=== PATIENT | female | born 1940 | race Caucasian/White ===

== ENCOUNTER 2016-10-14 11:06 | Observation (INO) ==
[2016-10-14 11:11] VITALS: BMI 33.9
[2016-10-14 11:37] LABS: BASOPHILS # (AUTO) 0.1 K/uL (0-0.2); BASOPHILS % (AUTO) 0.8 % (0.0-3.0); EOSINOPHILS # (AUTO) 0.3 K/ul (0.0-0.7); EOSINOPHILS % (AUTO) 3.2 % (0.0-7.0); HEMATOCRIT 44.5 % (37.0-47.0); HEMOGLOBIN 14.9 g/dl (12.0-16.0); IMMATURE GRANULOCYTE % (AUTO) 0.4 % (0.0-5.0); LYMPHOCYTES # (AUTO) 2.8 K/uL (0.60-3.4); LYMPHOCYTES % (AUTO) 33.4 (10.0-50.0); MEAN CORPUSCULAR HEMOGLOBIN 28.9 pg (27.0-31.0); MEAN CORPUSCULAR HGB CONC 33.5 (31.8-35.4); MEAN CORPUSCULAR VOLUME 86.2 fl (81.0-99.0); MONOCYTES # (AUTO) 0.8 K/uL (0.4-2.0); MONOCYTES % (AUTO) 9.8 (0-10); NEUTROPHILS # (AUTO) 4.4 K/ul (2.0-6.9); NEUTROPHILS % (AUTO) 52.4; PLATELET COUNT 389 10^3/uL (140-440); RED BLOOD COUNT 5.16 10^6/ul (4.20-5.40); WHITE BLOOD COUNT 8.41 K/ul (4.6-10.2)
--- NOTE | 2016-10-14 11:46 | DI ---
EXAM: Two views of the chest. History: Cough. Findings: Heart size is normal. No focal consolidation. No appreciable pleural fluid and no pneum othorax. Atherosclerotic vascular calcifications. No acute osseous abnormalities. Postsurgical ch anges of the right humerus. Impression: No acute cardiopulmonary process.
--- NOTE | 2016-10-14 11:52 | CT ---
EXAM: CT of the head without contrast History: Dizziness. Technique: Multiplanar CT images through the head were obtained without the administration of IV co ntrast Findings: The visualized paranasal sinuses and mastoid air cells are clear in general. No acute ca lvarial abnormalities. Intracranially the ventricular and cisternal spaces are normal in size, shape and configuration for a patient of this age. No dominant mass or midline shift. No hydrocephalous. No acute intracrania l hemorrhage or abnormal extraaxial fluid collections. Impression: No acute intracranial process.
[2016-10-14 12:16] LABS: ALBUMIN 3.2 g/dL (3.4-5.0); ALBUMIN/GLOBULIN RATIO 0.78; ANION GAP 12.3; BILIRUBIN,TOTAL 0.57 mg/dL (0.00-1.20); BUN/CREATININE RATIO 13.63; CALCIUM 9.3 mg/dL (8.2-10.2); CREATININE 0.88 mg/dL (0.60-1.30); POTASSIUM 4.3 mmol/L (3.5-5.10); TOTAL PROTEIN 7.3 g/dL (5.8-8.1); TROPONIN I 0.015 ng/ml (0.0000-0.4000)
--- NOTE | 2016-10-14 12:59 | ED.PDOC ---
General ED Provider: Dr. VISHAL BOTELLO Chief Complaint: Dizziness Stated Complaint: DIZZINESS Time Seen by Physician: 11:10 (NO IJURY) Mode of Arrival: Walk-In Information Source: Patient Exam Limitations: No limitations Primary Care Provider: GENTRY EDWARDS Nursing and Triage Documentation Reviewed and Agree: Yes Neurological Complaint Exam - Dizziness Complaint/Exam Last Known Well: 1 DAY Onset: Gradual Duration: 11:12 AM Symptoms Are: Still present Timing: Intermittent Episodes Lasting: Hours Initial Severity: Mild Current Severity: Mild Character: Reports: Dizzy Aggravating: Reports: Position change Alleviating: Reports: Rest, Lying down, Closing eyes Associated Signs and Symptoms: Denies: Nausea, Vomiting, Diaphoresis, Tinnitus, Chest pain, Short of air, Palpitations, Unsteady gait, GI blood loss, Visual changes, Decreased oral intake, Change in medication, Change in diet, OTC meds, Loss of balance Cardiac Risk Factors: Reports: Hypertension Review of Systems - Review Of Systems Constitutional: Reports: Malaise, Weakness Eyes: Reports: No symptoms Ears, Nose, Mouth, Throat: Reports: No symptoms Respiratory: Reports: No symptoms Cardiac: Reports: No symptoms GI: Reports: No symptoms : Reports: No symptoms Musculoskeletal: Reports: No symptoms Skin: Reports: No symptoms Neurological: Reports: Other (DIZZINESS) Endocrine: Reports: No symptoms Hematologic/Lymphatic: Reports: No symptoms All Other Systems: Reviewed and Negative Past Medical History - Past Medical History Previously Healthy: No Endocrine: Reports: Hypothyroid Cardiovascular: Reports: Hypertension Respiratory: Reports: None Hematological: Reports: None Gastrointestinal: Reports: None Genitourinary: Reports: None Neuro/Psych: Reports: None Musculoskeletal: Reports: None Cancer: Reports: None Last Menstrual Period: NONE - Surgical History General Surgical History: Reports: None - Family History Family History: Reports: None - Social History Smoking Status: Never smoker Hx Substance Use: No Alcohol Screening: None Physical Exam - Physical Exam Appearance: Well-appearing, No pain distress, Well-nourished Eyes: ZACK, EOMI, Conjunctiva clear ENT: Ears normal, Nose normal, Oropharynx normal Respiratory: Airway patent, Breath sounds clear, Breath sounds equal, Respirations nonlabored Cardiovascular: RRR, Pulses normal, No rub, No murmur GI/: Soft, Nontender, No masses, Bowel sounds normal, No Organomegaly Musculoskeletal: Normal strength, ROM intact, No edema, No calf tenderness Skin: Warm, Dry, Normal color Neurological: Sensation intact, Motor intact, Reflexes intact, Cranial nerves intact, Alert, Oriented Psychiatric: Affect appropriate, Mood appropriate Interpretation - Radiology Interpretation Radiology Interpretation By: Radiologist Radiology Results: No acute changes - Fifth Hand Rate: Ted Rhythm: Sinus Ectopy: None - EKG Interpretation Rate: Ted Rhythm: Sinus Ectopy: None [place]: NL ST Segment: Normal Physician Notification - Case Discussed Physician Notified: PMD Time of Notification: 12:59 (ADMITT CAROTID DUPPLER MRI BRAIN) Critical Care Note - Critical Care Note Total Time (mins): 0 Course - Course Hematology/Chemistry: 10/14/16 11:30 10/14/16 11:30 Orders, Labs, Meds: Lab Review 10/14/16 11:30 WBC 8.41 RBC 5.16 Hgb 14.9 Hct 44.5 MCV 86.2 MCH 28.9 MCHC 33.5 RDW Coeff of Shayla 14.7 Plt Count 389 Immature Gran % (Auto) 0.4 Neut % (Auto) 52.4 Lymph % (Auto) 33.4 [place] % (Auto) 9.8 Eos % (Auto) 3.2 Baso % (Auto) 0.8 Immature Gran # (Auto) 0.0 Neut # 4.4 Lymph # 2.8 [place]idge # 0.8 Eos # 0.3 Baso # 0.1 D-Dimer (Manual) 840.62 Sodium 140 Potassium 4.3 Chloride 107 Carbon Dioxide 25 Anion Gap 12.3 BUN 12 Creatinine 0.88 Estimated GFR (MDRD) 62.00 BUN/Creatinine Ratio 13.63 Glucose 92 Calcium 9.3 Total Bilirubin 0.57 AST 15 ALT 10 L Alkaline Phosphatase 68 Total Creatine Kinase 32 Troponin I 0.0150 Total Protein 7.3 Albumin 3.2 L Globulin 4.1 Albumin/Globulin Ratio 0.78 TSH 2.530 Free T4 0.75 Orders Category Date Time Status EKG-(ED ONLY) Stat CARDIO 10/14/16 11:17 Completed CBC W/ AUTO DIFF Stat LAB 10/14/16 11:30 Completed COMPREHENSIVE METABOLIC PANEL Stat LAB 10/14/16 11:30 Completed CREATINE KINASE Stat LAB 10/14/16 11:30 Completed D-DIMER Stat LAB 10/14/16 11:30 Completed FREE T4 (FREE THYROXINE) Stat LAB 10/14/16 11:30 Completed THYROID STIMULATING HORMONE Stat LAB 10/14/16 11:30 Completed TROPONIN I Stat LAB 10/14/16 11:30 Completed CHEST, 2 VIEWS PA & LAT Stat RADS 10/14/16 11:[address] HEAD W/O CONTRAST Stat RADS 10/14/16 11:18 Completed Vital Signs: Temp Pulse Resp BP Pulse Ox 10/14/16 11:06 96.6 F L 55 L 18 143/71 H 93 L Departure - Departure Time of Disposition: 12:58 Disposition: HOME SELF-CARE Discharge Problem: Dizziness Instructions: Vertigo (ED), Dizziness (ED), Lightheadedness (ED) Condition: Good Pt referred to PMD for follow-up: Yes (ADMITT) Allergies/Adverse Reactions: Allergies No Known Allergies Allergy (Unverified 10/14/16 11:12) Home Medications: Ambulatory Orders Bisoprolol Fumarate 5 mg PO BID 10/14/16 Diltiazem HCl [Diltiazem 24Hr Cd] 240 mg PO DAILY 10/14/16 Levothyroxine Sodium [Synthroid] 125 mcg PO DAILY 10/14/16 Nitroglycerin [Nitrostat] 0.4 mg SL Q5MIN X 3 DOSES PRN 10/14/16 Disposition Discussed With: Patient, Family
[2016-10-14] MEDS ORDERED: NITROSTAT SL PRN (13:03)
--- NOTE | 2016-10-14 14:27 | MRI ---
EXAM: MRI brain without and with IV contrast. DATE: 14 October 2016. HISTORY: Dizziness. TECHNIQUE: Sagittal T1W pre and postcontrast, axial T2W, axial FLAIR, axial T1W pre and postcontras t, axial DWI, coronal T1W postcontrast, and coronal T2W GRE sequences of the brain [place] [facility] [place] [facility] Tammy magnet. CONTRAST: Omniscan - 19 ml IV. COMPARISON: CT head 14 October 2016. FINDINGS: The lateral ventricles are upper normal size. Sylvian fissures and many frontal / pariet al lobe sulci are prominent due to involutional change. No midline shift, mass effect or loculated extra-axial fluid collection is apparent. No acute infarct, hemorrhage or enhancing neoplasm is riley ntified. No abnormal contrast enhancement is identified in the brain, meninges or dura. Minimal, c onfluent rim of T2W/FLAIR hyperintensity is observed in the white matter abutting each lateral ventr icle. Small number of 2-10 mm, T2W/FLAIR bright, non-enhancing foci are scattered in the lopez rad iata, centrum semiovale and subcortical white matter bilaterally. the vogel - white matter different iation is normal. No migration or diverticulation abnormality is identified. The amygdala, hippoca mpus, and parahippocampal gyri are symmetric and normal bilaterally. The 7th/8th cranial nerve comp lexes, cerebellopontine angles, brainstem, and visible cervical spinal cord are normal. There is no cerebellar tonsillar ectopia. The pituitary gland is small in size, with CSF filling most of the p ituitary fossa. Corpus callosum is normal in size and configuration. Left vertebral artery is domina nt. Flow voids are present in the major intracranial arteries and in the dural venous sinuses. No a neurysm, AVM or dural venous sinus thrombosis is apparent. Appearance in the lens of each eye is co nsistent with prior cataract surgery. No other orbit abnormality is identified. A few inferolatera l right mastoid air cells have a reticular pattern T2W bright, T1W intermediate signal without abnor mal enhancement. Left of the mastoid air cells are unremarkable. There is no acute sinusitis. Stephon ateral parotid gland fatty infiltration is demonstrated. No neck mass or lymphadenopathy is detecte d. No calvarial neoplasm or acute fracture is evident. IMPRESSIONS: 1. No acute infarct, hemorrhage, mass or hydrocephalus. 2. Minor/mild supratentorial small vessel disease. 3. Mild cerebral atrophy (primarily frontoparietal). 4. 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 5. Minor right mastoid air cell disease. Note: Report faxed to ER physician at 1421 hrs, 14 October 2016.
--- NOTE | 2016-10-14 14:32 | US ---
EXAM: Ultrasound bilateral carotid duplex HISTORY: Dizziness and speech difficulty COMPARISON: Carotid Doppler 03/03/2015 TECHNIQUE: Sonographic, wave spectral analysis and color Doppler evaluation of the carotids were pe rformed. FINDINGS: The right carotid is patent in appearance with mild atherosclerotic plaque visualized. The right ICA peak systolic velocity measures 90 cm/sec which is normal. The ICA / CCA peak systolic velocity ratio is 1.7 and ICA end-diastolic velocity is 20 cm/sec. The left carotid is patent in appearance with mild atherosclerotic plaque visualized. The left ICA peak systolic velocity measures 90 cm/sec which is normal. The left ICA / CCA peak systolic velocity ratio is 1.5 and ICA end-diastolic velocity is 20 cm/sec. Wave spectral analysis is within normal limits bilaterally. Vertebral arteries demonstrate antegrade flow bilaterally. IMPRESSION: Bilateral mild atherosclerotic disease with no sonographic or Doppler evidence of hemodynamically si gnificant stenosis.
[2016-10-14] MEDS: VALIUM PO SCH ×2 (16:18→20:10)
[2016-10-14] MEDS: SODIUM CHLORIDE 1,000 ML IV SCH (16:18)
[2016-10-14] MEDS: ANTIVERT PO SCH ×2 (16:18→20:11)
[2016-10-14 19:27] LABS: TROPONIN I 0.011 ng/ml (0.0000-0.4000)
[2016-10-14] MEDS: ZEBETA PO SCH (20:11)
[2016-10-15 03:28] LABS: BASOPHILS # (AUTO) 0.1 K/uL (0-0.2); BASOPHILS % (AUTO) 0.7 % (0.0-3.0); EOSINOPHILS # (AUTO) 0.3 K/ul (0.0-0.7); HEMATOCRIT 38.2 % (37.0-47.0); HEMOGLOBIN 12.6 g/dl (12.0-16.0); IMMATURE GRANULOCYTE % (AUTO) 0.5 % (0.0-5.0); LYMPHOCYTES # (AUTO) 2.7 K/uL (0.60-3.4); MEAN CORPUSCULAR HEMOGLOBIN 28.6 pg (27.0-31.0); MEAN CORPUSCULAR VOLUME 86.6 fl (81.0-99.0); MONOCYTES # (AUTO) 1.1 K/uL (0.4-2.0); MONOCYTES % (AUTO) 12.8 (0-10); NEUTROPHILS # (AUTO) 4.5 K/ul (2.0-6.9); PLATELET COUNT 326 10^3/uL (140-440); RED BLOOD COUNT 4.41 10^6/ul (4.20-5.40); WHITE BLOOD COUNT 8.59 K/ul (4.6-10.2)
[2016-10-15 03:57] LABS: ALBUMIN 2.4 g/dL (3.4-5.0); ALBUMIN/GLOBULIN RATIO 0.77; ANION GAP 9.7; BILIRUBIN,TOTAL 0.29 mg/dL (0.00-1.20); BUN/CREATININE RATIO 18.3; CALCIUM 7.6 mg/dL (8.2-10.2); CREATININE 0.71 mg/dL (0.60-1.30); POTASSIUM 3.7 mmol/L (3.5-5.10); TOTAL PROTEIN 5.5 g/dL (5.8-8.1)
[2016-10-15 04:03] LABS: CREATINE KINASE 20 U/L
[2016-10-15] MEDS: SODIUM CHLORIDE 1,000 ML IV SCH (04:47)
[2016-10-15 05:44] VITALS: BP 161/78; TEMP 98
[2016-10-15] MEDS ORDERED: SODIUM CHLORIDE 250 ML IV ONE (06:00)
[2016-10-15] MEDS ORDERED: SYNTHROID PO SCH ×2 (06:30)
[2016-10-15] MEDS: VALIUM PO SCH (06:44)
[2016-10-15] MEDS ORDERED: NON-FORMULARY MEDICATION (Diltiazem Hcl [Diltiazem 24hr Cd] 240 MG) PO SCH ×22 (09:00)
[2016-10-15] MEDS ORDERED: NON-FORMULARY MEDICATION (Levothyroxine Sodium [Synthroid] 125 MCG) PO SCH ×22 (09:00)
[2016-10-15] MEDS ORDERED: CARDIZEM CD PO SCH (09:00)
[2016-10-15] MEDS: ANTIVERT PO SCH (09:46)
[2016-10-15] MEDS: ZEBETA PO SCH (09:46)
--- NOTE | 2016-10-17 11:02 | ECHO2D ---
Date of Exam: 10/15/16 Ordering Physician: GENTRY EDWARDS Reason for Echo: DIZZINESS M-Mode Normal Adult Results LV Dimensions Normal Adult Results AoV Opening excursions >1.6 >1.6 LVEDD-base- 3.5-5.8 5.1 Ao root dimensions 2.0-3.7 3.8 LVESD-base- 3.1-4.6 L. Atrium dimensions 1.9-3.8 4.7 Post. Wall thickness 0.8-1.1 1.2 IV septum (thickness) 0.7-1.2 1.3 Post. Wall excursion 0.72-1.3 NORMAL Septal motion NORMAL Systolic motion R. Ventricular cavity 1.5-2.0 NORMAL LVEF 60% 54% Paradoxical septal wall motion NORMAL 2-D : ENLARGED LEFT ATRIAL CAVITY--NORMAL LEFT VENTRICULAR CONTRACTILITY-- NORMAL VALVES--NO EFFUSION, NO THROMBUS M-MODE: MV: NORMAL AV: NORMAL TV: NORMAL PV: CHAMBER SIZE: ENLARGED LEFT ATRIAL CAVITY WALL MOTION: NORMAL LEFT VENTRICULAR CONTRACTILITY PERICARDIUM: NORMAL INTERPRETATION: 1. LEFT VENTRICULAR HYPERTROPHY WITH ENLARGED LEFT ATRIAL CAVITY 2. NORMAL LEFT VENTRICULAR CONTRACTILITY 3. NORMAL VALVES MTDD
--- NOTE | 2016-10-18 15:17 | HP ---
DATE OF SERVICE: 10/14/16 REASON FOR HOSPITALIZATION: Dizziness. HISTORY OF PRESENT ILLNESS: The patient is a 76 year old white female seen in the emergency room with dizziness, the patient walked in. The patient had dizziness for past one day, mostly the dizziness was with the head movement with nausea. The patient had no nausea and then the patient lays down and she feels better or she closes her eyes. Change in the position or movement of the head makes her nauseated and dizzy. REVIEW OF SYSTEMS: CONSTITUTIONAL: No night sweats. Weakness and fatigue. No fever or chills. The patient is up and about. HEENT: Eyes: No visual changes. No eye pain. No eye discharge. ENT: No runny nose. No epistaxis. No sinus pain. No sore throat. No odynophagia. No ear pain. No congestion. RESPIRATORY: No cough, no congestion. No hemoptysis. No shortness of breath. CARDIOVASCULAR: No angina symptoms. No CHF symptoms. No atypical chest pain for CAD. No palpitations. No shortness of breath. No PND. No orthopnea. GASTROINTESTINAL: No abdominal pain. Nausea with dizziness. No vomiting. No diarrhea or constipation. No hematemesis. No hematochezia. GENITOURINARY: No urgency. No frequency. No dysuria. No hematuria. No obstructive symptoms. No discharge. No pain. No significant abnormal bleeding. MUSCULOSKELETAL: No musculoskeletal pain. No joint swelling. No arthritis. NEUROLOGICAL: No headache. No neck pain. No syncope. No seizures. Dizziness with head movement, feels like she is going to pass out, no localized lack of movement of any extremity or speech problems or swallowing problem. PSYCHIATRIC: Not anxious. No depression. No suicidal thoughts. No homicidal thoughts. SKIN: No rash. No lesions. No wounds. ENDOCRINE: No unexplained weight loss. No weight gain. HEMATOLOGIC/LYMPHATIC: No anemia. No purpura. No petechiae. No prolonged or excessive bleeding. No palpable lymph nodes. PERSONAL/FAMILY/SOCIAL HISTORY: The patient is and lives with the . Nonsmoker and no alcohol abuse. 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 Dr. Justo Hwang Dyslipidemia Hypertension Carotid stenosis 40-60%, 5-6 years ago Metabolic syndrome Vitamin D deficiency Severe DJD, Generalized Heart cath, 01/[address] Carballo, normal Hypothyroidism MEDICATIONS: Zebeta 5mg twice a day Levothyroxine 150mg PO daily Diltiazem 240mg PO daily Aspirin 81mg PO daily ALLERGIES: Latex- adverse reaction. PHYSICAL EXAMINATION: GENERAL: The patient is oriented to time, place and person. VITAL SIGNS: Temperature 97.6, pulse 61, respiratory rate 22, blood pressure 140/70 and pulse ox 93%. HEENT: Head normocephalic, atraumatic. Eyes: Extraocular muscles are intact. Pupils are equal, round and reactive to light and accommodation. Ears: No lesions. Nose appeared normal. Throat: No exudate or erythema. Face: Symmetrical. NECK: Supple. No JVP, no carotid bruit. No lymphadenopathy or thyromegaly. LUNGS: Decreased breath sounds but clear to auscultation. Percussion note normal. Chest symmetrical. HEART: S1, S2, no S3. No murmurs. No cyanosis or clubbing. No ascites. Pulses: Dorsalis pedis and posterior tibial pulses +1 to +2 both sides. ABDOMEN: Soft. Nontender. Bowel sounds active. No CVA tenderness. No mass felt. EXTREMITIES: No edema. Full range of motion of all extremities, equal. NEUROLOGIC: No focal deficit. Cranial nerves II through XII are grossly intact. No headache, no double vision or headache. Mental status normal. Moving all her extremities. Deep tendon flex and motor sensory normal. SKIN: Not dry. Intact. Turgor - normal. LYMPHATIC: No palpable lymph nodes/no lymphedema. MUSCULOSKELETAL: Normal joints with no swelling. Muscle tone is normal. LABS: Hgb 14.9, hct 44, WBC 8,400 normal differential, creatinine 0.8, BUN 12, potassium 4.3, T4 TSH normal, GFR 62cc per minute. ASSESSMENT: 1. Dizziness, light headedness likely from vestibular dysfunction with nausea 2. Coronary artery disease with stent, 2008 3. Hypothyroidism 4. Hypertension 5. Dyslipidemia 6. GIST tumor, tumor of the stomach 7. Obesity PLAN: 1. The patient already has chest x-ray and CT scan of the head, both negative 2. Will do carotid scan 3. Will do echocardiogram 4. Telemetry to monitor the rhythm 5. Valium/Antivert combination Q 6 hourly CONDITION: Stable. TIME SPENT: More than 70 minutes. MTDD
--- NOTE | 2016-10-20 15:13 | PN ---
DATE OF SERVICE: 10/15/16 DISCHARGE NOTE SUBJECTIVE: The patient's dizziness subsided with Antivert and Valium combination. She was up and about, she looked happy and was able to tolerate the food with no vomiting. Explained about vestibular dysfunction. REVIEW OF SYSTEMS: CONSTITUTIONAL: No night sweats. No fatigue, malaise, lethargy. No fever or chills. HEENT: Eyes: No visual changes. No eye pain. No eye discharge. ENT: No runny nose. No epistaxis. No sinus pain. No sore throat. No odynophagia. No congestion. RESPIRATORY: No cough, no congestion. No hemoptysis. CARDIOVASCULAR: No angina symptoms. No CHF symptoms. No atypical chest pain for CAD. No palpitations. No shortness of breath. GASTROINTESTINAL: No abdominal pain. No nausea or vomiting. No diarrhea or constipation. No hematemesis. No hematochezia. GENITOURINARY: No urgency. No frequency. No dysuria. No hematuria. No obstructive symptoms. No discharge. No pain. No significant abnormal bleeding. MUSCULOSKELETAL: No musculoskeletal pain; no joint swelling. NEUROLOGICAL: No headache. No neck pain. No syncope. No seizures. No dizziness. PSYCHIATRIC: Not anxious. No depression. No suicidal thoughts. No homicidal thoughts. SKIN: No rash. No lesions. No wounds. ENDOCRINE: No unexplained weight loss. No weight gain. HEMATOLOGIC/LYMPHATIC: No anemia. No purpura. No petechiae. No prolonged or excessive bleeding. No palpable lymph nodes. PHYSICAL EXAMINATION: GENERAL: The patient is oriented to time, place and person. VITAL SIGNS: Temperature 98, pulse 53, blood pressure 161/78, respiratory rate 18 and pulse ox 93%. HEENT: Head normocephalic, atraumatic. Eyes: Extraocular muscles are intact. Pupils are equal, round and reactive to light and accommodation. Ears: No lesions. Nose appeared normal. Throat: No exudate or erythema. NECK: Supple. No JVD, no carotid bruit. No lymphadenopathy or thyromegaly. LUNGS: Clear to auscultation. Percussion note normal. Chest symmetrical. HEART: S1, S2, no S3. No murmurs. No cyanosis or clubbing. No ascites. Pulses: Dorsalis pedis and posterior tibial pulses +1 to +2 both sides. ABDOMEN: Soft. Nontender. Bowel sounds active. No CVA tenderness. No mass felt. EXTREMITIES: No edema. Full range of motion of all extremities, equal. NEUROLOGIC: No focal deficit. Cranial nerves II through XII are grossly intact. No headache, no double vision or headache. SKIN: Not dry. Intact. Turgor - normal. LYMPHATIC: No palpable lymph nodes/no lymphedema. MUSCULOSKELETAL: Normal joints with no swelling. Muscle tone is normal. LABS: Hgb 12.6, hct 38, WBC 8,500 normal differential, creatinine 0.7, BUN 13, potassium 3.7, glucose 89. The patient's carotid scan and CT scan of the head was negative. Echocardiogram normal LV contractility with LVH. Telemetry no arrhythmias noted, sinus rhythm. ASSESSMENT: 1. Vestibular dysfunction with nausea 2. Coronary artery disease 3. GIST tumor 4. History of GIST tumor of the stomach 5. Dyslipidemia 6. Hypertension 7. Hypothyroidism PLAN: 1.Continue the same medications. 2.Instruction to come back on Monday or Monday for followup. TIME SPENT: More than 30 minutes. Plan and coordination of the patient's care discussed in the presence of nurse. IGOR
--- NOTE | 2016-10-20 15:25 | DS ---
DATE OF SERVICE: 10/15/16 FINAL DIAGNOSIS: 1. Vestibular dysfunction with nausea 2. Coronary artery disease 3. GIST tumor 4. History of GIST tumor of the stomach 5. Dyslipidemia 6. Hypertension 7. Hypothyroidism DISCHARGE INSTRUCTIONS: Continue the same medications. Instruction to come back on Monday or Monday for followup. MEDICATIONS AT DISCHARGE: Bisoprolol Diltiazem Levothyroxine Nitroglycerin as needed Aspirin advised to buy Antivert PRN over the counter Three times a day as needed. NEW PRESCRIPTIONS: Antivert 25mg three times a day DIET INSTRUCTIONS: As tolerated ACTIVITY: As tolerated SMOKING: Non-smoker DISEASE SPECIFIC EDUCATION: Vestibular dysfunction Medication Followup LABS: Hgb 12.6, hct 38, WBC 8,500 normal differential, creatinine 0.7, BUN 13, potassium 3.7, glucose 89. The patient's carotid scan and CT scan of the head was negative. Echocardiogram normal LV contractility with LVH. Telemetry no arrhythmias noted, sinus rhythm. HOSPITAL COURSE: The patient's dizziness subsided with Antivert and Valium combination. She was up and about, she looked happy and was able to tolerate the food with no vomiting. Explained about vestibular dysfunction. CONDITION: Stable TIME SPENT: More than 60 minutes. MTDD
== END 2016-10-15 11:00 | disposition home or self-care (01) ==
LOC: ED 11:06 → MEDSURG B 13:26 → INTOOBSV 13:26
PROVIDERS: ADMIT Internal Medicine; ATTEND Internal Medicine
DX: H81.8X9 Other disorders of vestibular function, unspecified ear (principal); I25.10 Atherosclerotic heart disease of native coronary artery without angina pectoris; C49.A2 Gastrointestinal stromal tumor of stomach; I51.7 Cardiomegaly; I10 Essential (primary) hypertension; E03.9 Hypothyroidism, unspecified; E78.5 Hyperlipidemia, unspecified; E66.9 Obesity, unspecified; Z85.028 Personal history of other malignant neoplasm of stomach; Z95.5 Presence of coronary angioplasty implant and graft; Z79.899 Other long term (current) drug therapy
CPT/HCPCS: 36415; 80053; 82550; 84439; 84443; 84484; 85025; 85379; 93005; 93010; 96360; 96361; 99284

== ENCOUNTER 2019-02-07 09:11 | Outpatient (CLI) ==
--- NOTE | 2019-02-07 11:18 | US ---
EXAM: Carotid ultrasound HISTORY: Dizziness, headache COMPARISON: 10/14/2016 TECHNIQUE: Carotid ultrasound was performed using Duplex imaging with vogel scale, color, and Doppler imaging performed. FINDINGS: Right carotid: There is atherosclerotic plaque in the common carotid and bulb/internal carotid arter y. Peak systolic velocity measurement in the right internal carotid artery is 0.59 meters per second . End-diastolic velocity measurement in the right internal carotid artery is 0.12 meters per second. Right internal to common carotid artery peak systolic velocity ratio is 0.8. Flow in the right jose tebral artery is antegrade. Left carotid: There is atherosclerotic plaque in the common carotid and bulb/internal carotid artery . Peak systolic velocity measurement in the left internal carotid artery is 0.71 meters per second. End-diastolic velocity measurement in the left internal carotid artery is 0.21 meters per second. L eft internal to common carotid artery peak systolic velocity ratio measures 1.9. Flow in the left ve rtebral artery is antegrade. IMPRESSION: 1. Right internal carotid: Mild (less than 50%) stenosis 2. Left internal carotid: Mild (less than 50%) stenosis
--- NOTE | 2019-02-07 18:21 | MRI ---
EXAM: Brain MRI with and without contrast. HISTORY: Dizziness and headache. COMPARISON: Brain MRI 10/14/[address] 10/14/2016. TECHNIQUE: Multiplanar, multisequence MR images were acquired of the brain before and after administ ration of 15 ml Omniscan intravenous contrast. FINDINGS: The midline structures are central and the craniocervical junction is unremarkable. There is enlargement of the subarachnoid space over the frontal parietal lobes at the convexity and there is mild prominence of the ventricles, sulci and cisterns. These findings are considered within mayra l variation for the patient's age. No abnormal extra-axial fluid collections are present. The brain parenchyma has no diffusion restriction to suggest acute hypoperfusion or infarction. Ther e is a chronic 3 mm lacuna in the superomedial left frontal lobe and slightly more laterally, there i s a chronic 5 mm lacuna. There is a prominent dilated perivascular space in the inferior right basal ganglia. There are small T2 hyperintensities in the supratentorial white matter. These are most nu merous in the bilateral parietal periventricular and subcortical white matter. These findings are co mpatible with mild leukomalacia. There are no abnormal foci of dark gradient echo signal. After adm inistration of gadolinium, no enhancing lesions are identified. The corpus callosum is normal in siz e and configuration. The sella is expanded and the pituitary gland is small and flattened inferiorly consistent with a mostly empty sella. The infundibulum is midline. There are no intraorbital masses. There has been previous lens surgery bilaterally. Hyperostosis fr ontalis interna is present. Minor mucosal thickening is present in the ethmoid air cells bilaterally and there is mucosal thickening in a minor number of the inferior posterior right mastoid air cells. There is no abnormal contrast enhancement in the internal auditory canals or labyrinthine structure s. Expected flow voids are present in the major intracranial arteries. There is dolichoectasia of the c avernous segments of both internal carotid arteries. Dural venous sinuses are patent. IMPRESSION: 1. No intracranial mass, hemorrhage or acute cerebral infarct. 2. Chronic lacunes superomedial left frontal lobe and mild chronic ischemic small vessel disease in the supratentorial white matter. 3. Mostly empty sella.
== END 2019-02-07 09:12 | disposition home or self-care (01) ==
LOC: RAD 09:11
PROVIDERS: ATTEND Internal Medicine
DX: R42 Dizziness and giddiness (principal); R51 Headache
CPT/HCPCS: 36415; 82565